=== PATIENT | female | born 1985 | race Caucasian/White ===

== ENCOUNTER 2016-10-22 17:58 | Emergency (ER) | payer MEDICAID ==
[~2016-10-22] VITALS: Ht 167.6 cm; Wt 54.4 kg
[~2016-10-22 17:58] MED LIST: HYDR-3326 PO; VALS160T24 PO
[2016-10-22 18:38] LABS: KETONES,URINE Trace (NEGATIVE); LEUKOCYTE ESTERASE ,URINE Large (NEGATIVE); PH,URINE 6.5 (5.0-8.0)
[2016-10-22 18:39] LABS: PREGNANCY TEST URINE QUAL NEGATIVE (NEGATIVE)
[2016-10-22 18:40] LABS: ADD UA MICROSCOPIC YES
[2016-10-22] MEDS ORDERED: HYDROMORPHONE 1 MG/1 ML DISP.SYRIN ONE (18:47)
[2016-10-22 18:50] LABS: BASOPHILS # (AUTO) 0.2 /CMM (0.0-0.2); BASOPHILS % (AUTO) 2.3 % (0.0-2.0); DIFF TOTAL % 100 %; EOSINOPHILS % (AUTO) 0.6 % (0.0-6.0); HEMATOCRIT 42 % (33-45); HEMOGLOBIN 13.3 g/dL (11.5-14.8); LYMPHOCYTES # (AUTO) 1.8 /CMM (0.8-4.8); LYMPHOCYTES % (AUTO) 24.3 % (20.0-44.0); MEAN CORPUSCULAR HEMOGLOBIN 29 PG (26.0-33.0); MEAN CORPUSCULAR HGB CONC 32 g/dl (31.0-36.0); MEAN CORPUSCULAR VOLUME 90 fL (82-100); MONOCYTES # (AUTO) 0.4 /CMM (0.1-1.30); MONOCYTES % (AUTO) 5.8 % (2.0-12.0); NEUTROPHILS # (AUTO) 5.2 /CMM (1.8-8.9); PLATELET COUNT (AUTO) 302 /CMM (150-450); RED BLOOD CELL COUNT(AUTO) 4.63 MIL/uL (4.0-5.2); WHITE BLOOD COUNT (AUTO) 7.6 K/uL (4.3-11.0)
[2016-10-22 18:53] LABS: ADD URINE CULTURE YES; MUCUS,URINE Few /LPF (None Seen); RBC,URINE 21-50 /HPF (0-2)
[2016-10-22 18:55] LABS: CALCIUM, SERUM 9.5 mg/dL (8.5-10.1); CREATININE 0.7 mg/dL (0.6-1.3); POTASSIUM 3.4 mmol/L (3.5-5.1)
[2016-10-22] MEDS ORDERED: PROMETHAZINE HCL 25 MG/ML AMPUL ONE (18:59)
[2016-10-22 19:00] LABS: ALBUMIN 3.9 g/dL (3.4-5.0); BILIRUBIN,TOTAL 0.1 mg/dL (0.2-1.0); TOTAL PROTEIN, SERUM 7.8 g/dL (6.4-8.2)
[2016-10-22] MEDS ORDERED: PROMETHAZINE HCL 25 MG/ML AMPUL IV ONE (19:00)
[2016-10-22] MEDS ORDERED: HYDROMORPHONE 1 MG/1 ML DISP.SYRIN IV ONE (19:00)
[2016-10-22] MEDS ORDERED: diphenhydrAMINE HCL 25 MG CAPSULE ONE (19:21)
[2016-10-22 19:30] VITALS: BP 128/85
[2016-10-22] MEDS ORDERED: DIPHENHYDRAMINE HCL 12.5 MG/5 ML UDC PO ONE (19:30)
== END 2016-10-22 19:33 | disposition home or self-care (01) ==
LOC: ER 18:01
DX: N23 Unspecified renal colic (principal); N39.0 Urinary tract infection, site not specified; Z88.5 Allergy status to narcotic agent; Z88.6 Allergy status to analgesic agent; F17.210 Nicotine dependence, cigarettes, uncomplicated; I10 Essential (primary) hypertension; Z87.442 Personal history of urinary calculi
CPT/HCPCS: 36415; 76770; 80053; 81001; 83690; 84703; 85025; 87086; 96374; 96375; 99285; A4606; J1170; J2550; Q0163 ×2; Z7610; 81000-TC

== ENCOUNTER 2022-01-29 20:38 | Inpatient (IN) | payer OTHER ==
[~2022-01-29] VITALS: Ht 167.6 cm; Wt 59.9 kg
[~2022-01-29 20:38] MED LIST changes: -HYDR-3326 PO; +HYDR-3974 PO; -VALS160T24 PO; +VALS160T29 PO
--- NOTE | 2022-01-29 20:55 | NUR ---
PT BIBRA 839 FROM HOME HOME C/O GEN WEAKNESS, L KIDNEY PAIN, DIZZINESS, H/A X3 DAYS. PT A/OX4. TOLERATING R/A WELL WITH NO SOB . CONNECTED PT TO POX AND MONITOR.
--- NOTE | 2022-01-29 21:21 | NUR ---
US TECH AND WOODWORKING MACHINE SETTER AT PT'S BEDSIDE
--- NOTE | 2022-01-29 21:21 | NUR ---
URINE COLLECTED AND SENT TO LAB
[2022-01-29] MEDS ORDERED: diphenhydrAMINE HCL 50 MG/ML VIAL IV ONE (21:30)
[2022-01-29] MEDS ORDERED: HYDROMORPHONE 1 MG/1 ML DISP.SYRIN IV ONE ×2 (21:30→23:30)
[2022-01-29] MEDS ORDERED: METOCLOPRAMIDE HCL 10 MG/2 ML VIAL IV ONE (21:30)
[2022-01-29] MEDS ORDERED: IV NS 0.9% 1,000 ML BAG IV ONE (21:30)
[2022-01-29 21:35] LABS: BASOPHILS # (AUTO) 0.1 K/uL (0.0-0.2); BASOPHILS % (AUTO) 1.1 % (0.0-2.0); EOSINOPHILS % (AUTO) 1.5 % (0.0-6.0); HEMATOCRIT 40 % (33-45); HEMOGLOBIN 13.2 g/dL (11.5-14.8); LYMPHOCYTES # (AUTO) 2.2 K/uL (0.8-4.8); LYMPHOCYTES % (AUTO) 28.5 % (20.0-44.0); MEAN CORPUSCULAR HGB CONC 33 g/dl (31.0-36.0); MEAN CORPUSCULAR VOLUME 80 fL (82-100); MONOCYTES # (AUTO) 0.3 K/uL (0.1-1.30); MONOCYTES % (AUTO) 4.5 % (2.0-12.0); NEUTROPHILS # (AUTO) 4.9 K/uL (1.8-8.9); NEUTROPHILS % (AUTO) 64.4 % (43.0-81.0); PLATELET COUNT (AUTO) 357 K/uL (150-450); RED BLOOD CELL COUNT(AUTO) 4.95 MIL/uL (4.0-5.2); WHITE BLOOD COUNT (AUTO) 7.6 K/uL (4.3-11.0)
[2022-01-29 21:44] LABS: CALCIUM, SERUM 8.5 mg/dL (8.5-10.1); CREATININE 0.8 mg/dL (0.6-1.3)
[2022-01-29] MEDS ORDERED: METOCLOPRAMIDE HCL 10 MG/2 ML VIAL ONE (21:47)
[2022-01-29] MEDS ORDERED: diphenhydrAMINE HCL 50 MG/ML VIAL ONE (21:47)
[2022-01-29] MEDS ORDERED: HYDROMORPHONE 1 MG/1 ML DISP.SYRIN ONE ×2 (21:48→23:32)
[2022-01-29 21:50] LABS: ALBUMIN 3.7 g/dL (3.4-5.0); BILIRUBIN,DIRECT 0.1 mg/dL (0.0-0.2); BILIRUBIN,TOTAL 0.3 mg/dL (0.2-1.0); POTASSIUM 2.8 mmol/L (3.5-5.1)
[2022-01-29 21:59] LABS: BILIRUBIN,URINE NEGATIVE (NEGATIVE); COLOR,URINE YELLOW (YELLOW); LEUKOCYTE ESTERASE ,URINE SMALL (NEGATIVE); NITRITE, URINE NEGATIVE (NEGATIVE); PH,URINE 6.5 (5.0-8.0); PROTEIN,URINE NEGATIVE (NEGATIVE); UGLUCOSE NEGATIVE (NEGATIVE); UROBILINOGEN,URINE 0.2 EU/dL (0.2)
[2022-01-29 22:04] LABS: BACTERIA,URINE 1+ /HPF (None Seen)
[2022-01-29] MEDS ORDERED: POTASSIUM CHLORIDE 20 MEQ TAB.PRT.SR PO ONE ×2 (23:00→23:01)
[2022-01-29] MEDS ORDERED: CEFTRIAXONE 1 G in IV D5W 50 ML IV ONE (23:00)
[2022-01-29] MEDS ORDERED: CEFTRIAXONE 1GM BAG (ER ONLY) 50 ML IV ONE (23:01)
--- NOTE | 2022-01-29 23:28 | NUR ---
COVID ANTIGEN SWAB COLLECTED AND SENT TO LAB
[2022-01-29] MEDS ORDERED: PROCHLORPERAZINE EDISYLATE 10 MG/2 ML VIAL IVP ONE (23:30)
[2022-01-29] MEDS ORDERED: PROCHLORPERAZINE EDISYLATE 10 MG/2 ML VIAL ONE (23:32)
[2022-01-30] MEDS ORDERED: diphenhydrAMINE HCL 50 MG/ML VIAL ONE (00:41)
[2022-01-30] MEDS ORDERED: ACETAMINOPHEN 325 MG TABLET PO PRN (01:00)
[2022-01-30] MEDS ORDERED: Z GUARD REMEDY 4 OZ OINT TP PRN (01:00)
[2022-01-30] MEDS ORDERED: MAG HYDROX/AL HYDROX/SIMETH 30 ML UDC PO PRN (01:00)
[2022-01-30] MEDS ORDERED: MAGNESIUM HYDROXIDE 30 ML UDC PO PRN (01:00)
[2022-01-30] MEDS ORDERED: ONDANSETRON HCL/PF 4 MG/2 ML VIAL IVP PRN (01:00)
[2022-01-30] MEDS ORDERED: DIPHENHYDRAMINE HCL 12.5 MG/5 ML UDC PO PRN (01:00)
[2022-01-30] MEDS ORDERED: diphenhydrAMINE HCL ELIX 25 MG/10 ML UDC PO PRN (01:30)
[2022-01-30] MEDS ORDERED: HYDROMORPHONE 1 MG/1 ML DISP.SYRIN ONE ×3 (02:47→14:49)
[2022-01-30] MEDS: HYDROMORPHONE 1 MG/1 ML DISP.SYRIN IV PRN ×6 (03:03→23:39)
[2022-01-30] MEDS ORDERED: HYDROCODONE/APAP 5/325MG TABLET ONE ×3 (04:58→14:29)
[2022-01-30] MEDS: HYDROCODONE/APAP 5/325MG TABLET PO PRN ×4 (05:17→21:05)
[2022-01-30] MEDS ORDERED: diphenhydrAMINE HCL 25 MG CAPSULE ONE (08:14)
[2022-01-30] MEDS ORDERED: PANTOPRAZOLE 40 MG TABLET.DR PO ONE (08:35)
[2022-01-30] MEDS: PANTOPRAZOLE 40 MG TABLET.DR PO SCH (08:37)
[2022-01-30] MEDS ORDERED: MESA0.374 PO (08:39)
[2022-01-30] MEDS ORDERED: diphenhydrAMINE HCL ELIX 25 MG/10 ML UDC ONE (09:13)
[2022-01-30] MEDS ORDERED: POTASSIUM CHLORIDE 20 MEQ TAB.PRT.SR PO ONE ×2 (10:00→10:19)
--- NOTE | 2022-01-30 10:51 | NUR ---
COMPAZINE 10 MG Q4 HRS. PRN PER DR OWENS. READ BACK, VERIFIED. NOTED AND CARRIED OUT.
[2022-01-30] MEDS ORDERED: PROCHLORPERAZINE EDISYLATE 10 MG/2 ML VIAL IVP PRN (11:00)
[2022-01-30] MEDS: IV NS 0.9% 1,000 ML IV PRN ×2 (11:04→20:33)
--- NOTE | 2022-01-30 15:45 | NUR ---
NURSING SUP GAVE BED 323-1.
--- NOTE | 2022-01-30 16:13 | NUR ---
REPORT GIVEN TO ADAN DIAZ.
--- NOTE | 2022-01-30 16:30 | NUR ---
RN NOTES RECEIVED PATIENT FROM EMERGENCY ROOM. TRANSFERRED TO UNIT VIA WHEELCHAIR. VSS. ON RA WITH NO S/SX OF DISTRESS NOTED. ORIENTED TO NEW ROOM WITH SAFETY MEASURES IN PLACE AND CALL LIGHT WITHIN REACH. IV ACCESS NOTED R UA #20, L FOOT #24 INTACT AND PATENT. NOT ON FLUIDS AT THE MOMENT. GENERALIZED SMALL SCABS NOTED TO BILATERAL EXTREMITIES AND PATIENT VERBALIZED FEELING "ITCHY". WILL CONTINUE TO MONITOR PATIENT
--- NOTE | 2022-01-30 19:30 | NUR ---
MS/RN OPENING NOTE RECEIVED PATIENT RESTING IN BED. AWAKE, ALERT AND ORIENTED X 4. ABLE TO MAKE NEEDS KNOWN. C/O EXCRUCIATING PAIN TO LEFT FLANK AREA. WILL CHECK PAIN MED ORDERS. CONTINUES ON ROOM AIR WITH NO S/SX OF RESPIRATORY DISTRESS NOTED. IV ACCESS TO RIGHT UPPER ARM #20G AND LEFT FOOT #24G BOTH INTACT AND PATENT. PATIENT IS AMBULATORY WITH STEADY GAIT. CALL LIGHT WITHIN REACH. ASPIRATION, FALL AND SAFETY PRECAUTIONS MAINTAINED. WILL CONTINUE TO MONITOR.
[2022-01-30 20:00] VITALS: BP 156/102
[2022-01-30] MEDS ORDERED: PROCHLORPERAZINE MALEATE 10 MG TABLET PO PRN (20:30)
--- NOTE | 2022-01-30 21:00 | NUR ---
MS/RN NOTE PATIENT WITH C/O PAIN TO LEFT FLANK AREA UNRELIEVED BY CURRENT MEDS ORDERED. NOTIFIED THROAT CUTTER MD SANTOYO REGARDING PATIENTS PAIN. PER DR. SANTOYO - NO MORE PAIN MEDS. ENDORSED TO PATIENT. WILL CONTINUE WITH CURRENT PAIN MEDICATION ORDERS.
[2022-01-30] MEDS ORDERED: CEFTRIAXONE 1 G in IV D5W 50 ML IV SCH (22:00)
--- NOTE | 2022-01-30 22:00 | NUR ---
MS/RN NOTE IV TO RIGHT UPPER ARM INFILTRATED. IV REMOVED WITH TIP INTACT. PATIENT TOLERATED WELL. PRESSURE DRESSING APPLIED. OBTAINED ORDER FOR MIDLINE PLACEMENT D/T HARD STICK. PATIENT HAS IV ABX AND IVF ORDERED. MIDLINE PLACED TO RIGHT UPPER ARM #18G WITH PATIENT TOLERATING WELL. IVF RUNNING AT 75ML/HR. WILL CONTINUE TO MONITOR.
[2022-01-30] MEDS: diphenhydrAMINE HCL 50 MG CAPSULE PO PRN (22:30)
[2022-01-31] MEDS: HYDROCODONE/APAP 5/325MG TABLET PO PRN ×4 (01:20→13:25)
[2022-01-31] MEDS: HYDROMORPHONE 1 MG/1 ML DISP.SYRIN IV PRN ×4 (03:39→15:51)
--- NOTE | 2022-01-31 06:30 | NUR ---
MS/RN CLOSING NOTE PATIENT CURRENTLY RESTING IN BED. AWAKE, ALERT AND ORIENTED X 4. ABLE TO MAKE NEEDS KNOWN. C/O PAIN TO RIGHT FLANK AREA. NOT DUE FOR PAIN MEDS YET. CONTINUES ON ROOM AIR WITH NO S/SX OF RESPIRATORY DISTRESS NOTED. IV ACCESS TO RIGHT UPPER ARM MIDLINE #18G INTACT AND PATENT. CONTINUES ON IV ABX. PATIENT IS AMBULATORY WITH STEADY GAIT. CALL LIGHT WITHIN REACH. ASPIRATION, FALL AND SAFETY PRECAUTIONS MAINTAINED. WILL ENDORSE PLAN OF CARE TO ONCOMING SHIFT.
[2022-01-31 06:57] LABS: BASOPHILS % (AUTO) 0.7 % (0.0-2.0); EOSINOPHILS % (AUTO) 5.1 % (0.0-6.0); HEMATOCRIT 35 % (33-45); HEMOGLOBIN 11.6 g/dL (11.5-14.8); LYMPHOCYTES # (AUTO) 3.1 K/uL (0.8-4.8); LYMPHOCYTES % (AUTO) 45.7 % (20.0-44.0); MEAN CORPUSCULAR HGB CONC 33 g/dl (31.0-36.0); MEAN CORPUSCULAR VOLUME 81 fL (82-100); MONOCYTES # (AUTO) 0.5 K/uL (0.1-1.30); MONOCYTES % (AUTO) 6.8 % (2.0-12.0); NEUTROPHILS # (AUTO) 2.9 K/uL (1.8-8.9); NEUTROPHILS % (AUTO) 41.7 % (43.0-81.0); PLATELET COUNT (AUTO) 327 K/uL (150-450); RED BLOOD CELL COUNT(AUTO) 4.38 MIL/uL (4.0-5.2); WHITE BLOOD COUNT (AUTO) 6.9 K/uL (4.3-11.0)
[2022-01-31 07:09] LABS: CALCIUM, SERUM 8.1 mg/dL (8.5-10.1); CREATININE 0.7 mg/dL (0.6-1.3); MAGNESIUM 1.8 mg/dL (1.8-2.4); PHOSPHORUS 3.4 mg/dL (2.5-4.9); POTASSIUM 3.5 mmol/L (3.5-5.1)
--- NOTE | 2022-01-31 07:20 | NUR ---
ms rn received on bed, awake,alert,oriented x4,patient kame in w/ abd pain, patient is complaining of pain at this time, will monitor patient.
[2022-01-31] MEDS: PANTOPRAZOLE 40 MG TABLET.DR PO SCH (07:38)
--- NOTE | 2022-01-31 08:30 | NUR ---
ms hoffman breakfast served,due meds given,tolerated well.
--- NOTE | 2022-01-31 11:30 | NUR ---
ms rn still complaining of pain, wants to see .
[2022-01-31] MEDS: IV NS 0.9% 1,000 ML IV PRN (11:38)
--- NOTE | 2022-01-31 12:09 | NUR ---
ms rn patient is comlaining still w/ pain despite all the pain meds given, wants to speak w/ the doctor, called dr. wheatley but according to him he is off for the week, called [employer], spoke w/ Estela, don't know who is counselor education professor, she called Kassandra to follow up who is counselor education professor, promise to call in an hour, asking phone number of Kassandra just in case cannot call back in an hour,was told that only in the computer can she be contacted, so there is no number, will wait for them to call back.
[2022-01-31] MEDS: diphenhydrAMINE HCL 50 MG CAPSULE PO PRN (12:21)
--- NOTE | 2022-01-31 13:30 | NUR ---
ms rn dr. lamb will see patient.
--- NOTE | 2022-01-31 14:30 | NUR ---
ms rn was seen by dr. adonis sanchez/ margarita for her to go home today.
[2022-01-31] MEDS ORDERED: DIPH25CA83 PO (15:35)
[2022-01-31] MEDS ORDERED: LEVO500T90 PO (15:35)
--- NOTE | 2022-01-31 16:21 | NUR ---
ms maternal fetal physician instructions given and understood, patient went home w/ father,all needs attended.
== END 2022-01-31 16:00 | disposition home or self-care (01) | DRG 463 ==
LOC: ER 20:48 → TRANSITION 01-30 01:40 → TELE 01-30 17:05 → MED 01-30 18:00
PROVIDERS: ADMIT Internal Medicine; ATTEND Student in an Organized Health Care Education/Training Program
PROC: 05H533Z Insertion of Infusion Device into Right Subclavian Vein, Percutaneous Approach (ICD-10-PCS; principal; 2022-01-30)
PROC: B546ZZA Ultrasonography of Right Subclavian Vein, Guidance (ICD-10-PCS; 2022-01-30)
DX: N10 Acute pyelonephritis (principal); E87.6 Hypokalemia; Z20.822 Contact with and (suspected) exposure to COVID-19; I10 Essential (primary) hypertension; Z87.442 Personal history of urinary calculi; M79.89 Other specified soft tissue disorders; F41.9 Anxiety disorder, unspecified; Z88.5 Allergy status to narcotic agent
CPT/HCPCS: 36415; 76770-TC; 80048-TC; 80076-TC; 81001; 83735-TC; 84100-TC; 84703-TC; 85025-TC; 87081-TC; 87086-TC; C9803; G0378; J0696; J0780; J1170; J1200; J2765; J7030; J7060; Q0163; Q0164

== ENCOUNTER 2022-08-12 15:08 | Emergency (ER) | payer OTHER ==
[~2022-08-12] VITALS: Ht 167.6 cm; Wt 58.1 kg
[~2022-08-12 15:08] MED LIST changes: +DIPH25CA83 PO; +LEVO500T90 PO; +MESA0.374 PO
--- NOTE | 2022-08-12 15:24 | NUR ---
DR MAK AT BEDSIDE FOR EVAL
--- NOTE | 2022-08-12 15:26 | NUR ---
URINE SAMPLE COLLECTED AND SENT TO LAB
[2022-08-12] MEDS ORDERED: TRAMADOL HCL 50 MG TABLET PO ONE (15:30)
[2022-08-12] MEDS ORDERED: METOCLOPRAMIDE HCL 10 MG/2 ML VIAL IV ONE (15:30)
[2022-08-12] MEDS ORDERED: IV NS 0.9% 1,000 ML BAG IV ONE (15:30)
[2022-08-12] MEDS ORDERED: METOCLOPRAMIDE HCL 10 MG/2 ML VIAL ONE (15:33)
[2022-08-12] MEDS ORDERED: TRAMADOL HCL 50 MG TABLET ONE (15:33)
[2022-08-12 15:35] LABS: BILIRUBIN,URINE NEGATIVE (NEGATIVE); COLOR,URINE YELLOW (YELLOW); LEUKOCYTE ESTERASE ,URINE NEGATIVE (NEGATIVE); NITRITE, URINE NEGATIVE (NEGATIVE); PROTEIN,URINE NEGATIVE (NEGATIVE); UGLUCOSE NEGATIVE (NEGATIVE); UROBILINOGEN,URINE 0.2 EU/dL (0.2)
[2022-08-12 15:36] LABS: WBC,URINE 0-2 /HPF (0-3)
[2022-08-12 15:37] LABS: BACTERIA,URINE Rare /HPF (None Seen); SQUAMOUS EPITHELIAL CELL,UR Few /HPF (None Seen)
--- NOTE | 2022-08-12 15:58 | NUR ---
IV LINE INSERTED ON R WRIST #20.
--- NOTE | 2022-08-12 16:05 | NUR ---
PT RETURNED FROM RADIOLOGY
--- NOTE | 2022-08-12 16:10 | NUR ---
PHLEB AT BEDSIDE FOR BLOOD DRAW
[2022-08-12] MEDS ORDERED: ACETAMINOPHEN ES 500 MG TABLET ONE (16:15)
[2022-08-12] MEDS ORDERED: diphenhydrAMINE HCL 25 MG CAPSULE ONE (16:15)
[2022-08-12 16:26] LABS: BASOPHILS % (AUTO) 0.4 % (0.0-2.0); EOSINOPHILS % (AUTO) 0.5 % (0.0-6.0); HEMATOCRIT 36 % (33-45); HEMOGLOBIN 11.7 g/dL (11.5-14.8); LYMPHOCYTES % (AUTO) 28.7 % (20.0-44.0); MEAN CORPUSCULAR HGB CONC 33 g/dl (31.0-36.0); MEAN CORPUSCULAR VOLUME 85 fL (82-100); MONOCYTES # (AUTO) 0.4 K/uL (0.1-1.30); MONOCYTES % (AUTO) 5.5 % (2.0-12.0); NEUTROPHILS # (AUTO) 4.6 K/uL (1.8-8.9); NEUTROPHILS % (AUTO) 64.9 % (43.0-81.0); PLATELET COUNT (AUTO) 270 K/uL (150-450); WHITE BLOOD COUNT (AUTO) 7.1 K/uL (4.3-11.0)
[2022-08-12] MEDS ORDERED: diphenhydrAMINE HCL 25 MG CAPSULE PO ONE (16:30)
[2022-08-12] MEDS ORDERED: ACETAMINOPHEN ES 500 MG TABLET PO ONE (16:30)
[2022-08-12] MEDS ORDERED: MORPHINE SULFATE INJ 4 MG/ML DISP.SYRIN ONE (16:46)
[2022-08-12] MEDS ORDERED: HYDR-3980 PO ×2 (16:50→17:11)
[2022-08-12 16:52] LABS: CALCIUM, SERUM 8.3 mg/dL (8.5-10.1); CREATININE 0.8 mg/dL (0.6-1.3); POTASSIUM 3.8 mmol/L (3.5-5.1)
[2022-08-12] MEDS ORDERED: MORPHINE SULFATE INJ 2 MG/ML DISP.SYRIN IV ONE (17:00)
--- NOTE | 2022-08-12 17:10 | NUR ---
IV removed. Catheter intact and site benign. Pressure and 4x4 applied to site. No bleeding noted.
--- NOTE | 2022-08-12 17:17 | NUR ---
Patient discharged to home in stable condition. Written and verbal after care instructions given. Patient verbalizes understanding of instruction.
[2022-08-12 17:18] VITALS: BP 120/65
== END 2022-08-12 17:18 | disposition home or self-care (01) ==
LOC: ER 15:10
DX: N23 Unspecified renal colic (principal); R30.0 Dysuria; N83.202 Unspecified ovarian cyst, left side; I10 Essential (primary) hypertension; F17.200 Nicotine dependence, unspecified, uncomplicated; Z87.442 Personal history of urinary calculi; Z90.89 Acquired absence of other organs; Z88.8 Allergy status to other drugs, medicaments and biological substances; Z79.899 Other long term (current) drug therapy
CPT/HCPCS: 99284; 74176; 96374; 96361; 96375; 85025; 80048; 84703; 81001; 36415; 82962; Q0163; J2270; J2765; J7030